=== PATIENT | female | born 1945 | race Native Hawaiian/Other Pacific Islander ===

== ENCOUNTER 2021-09-24 12:42 | Emergency (ER) | payer MEDICARE, SELFPAY ==
[2021-09-24 12:55] VITALS: BP 170/87; PULSE 95; RESP 24; TEMP 36.2; O2SAT 80; BMI 28.1
--- NOTE | 2021-09-24 13:00 | W.ED.SOB ---
HPI - SOB/Dyspnea General: Chief Complaint: Shortness of Breath/Dyspnea Stated Complaint: Low O2, Difficulty Breathing Time Seen by Provider: 09/24/21 12:55 History of Present Illness: HPI Narrative: Ms. Llanos is a 75-year-old lady with significant past medical history of COPD who presents to the emergency department due to shortness of breath and cough. Symptoms have been worse for the past 3 days. She has productive cough, generalized malaise, but no other generalized symptoms. intensisty is moderate to severe. Denies covid vaccination or known sick exposure. She does endorse bilateral lower extremity edema and was started on Lasix recently, does have a history of left greater than right swelling however symmetric lately. No other specific changes to health, exacerbating, or alleviating factors identified. Review of Systems General: Reports: 10 or more systems reviewed and unremarkable except in HPI and below [facility] ED PFSH: Medical History (Updated 09/29/21 @ 00:01 by ) Acute and chronic respiratory failure with hypercapnia Acute exacerbation of chronic obstructive airways disease Respiratory failure with hypoxia and hypercapnia Physical Exam Narrative: EXAM NARRATIVE: GENERAL/CONSTITUTIONAL -mildly ill-appearing. Respiratory as noted below Eyes - PERRL, no conjunctival injection ENMT - Atraumatic external nose and ears. Moist mucous membranes NECK - supple. trachea midline CARDIOVASCULAR - regular rate and rhythm. 1-2+ edema bilateral lower extremities RESPIRATORY -coarse to auscultation bilaterally and diminished. Tachypnea with mild accessory muscle use, now requiring supplemental oxygen. ABDOMEN/GI - Nontender/Nondistended. MSK - Extremities without obvious deformity or tenderness to palpation SKIN - Warm, Dry NEURO - alert and appropriately oriented. Moves all extremities equally. Course ED course: - Patient was seen and evaluated by me at bedside - Patient placed on cardiac monitors, IV access obtained - Initial evaluation notable for respiratory status as noted above, no evidence of fatigue or need for further escalation at this time -RT treatment ordered. - Labs notable for no leukocytosis, hemoconcentration compared to normal. ABG compensated with mildly increased PCO2 and decreased PO2. No significant electrolyte abnormalities. BNP only minimally elevated. Procalcitonin negative. Viral studies negative - Imaging notable for no acute finding on chest x-ray, clinical presentation is more impressive than chest x-ray findings and therefore additional CT imaging felt to be warranted. No pulmonary embolism identified or other significant infiltrate. Hilar adenopathy discussed with patient. - Upon serial reexamination after treatment the patient was improved with treatment though still requiring oxygen. - Based on patient history, evaluation, labs, and imaging as interpreted the most likely cause of the patient's condition is COPD exacerbation - The results of ED evaluation were discussed with the patient including potential management options. I offered admission versus DC with home oxygen and COPD exacerbation treatment. Patient desired discharge home, all oxygen ordered. Prescriptions, return precautions, follow-up plan discussed with the patient. She verbalized understanding and feels safe for discharge. - Patient discharged in satisfactory condition. Vital Signs: Vital signs: Vital Signs Temperature 97.2 F L 09/24/21 12:55 Pulse Rate 95 09/24/21 13:38 Respiratory Rate 22 H 09/24/21 13:38 Blood Pressure 131/105 09/24/21 13:29 Pulse Oximetry 88 L 09/24/21 17:27 MDM - SOB/Dyspnea Medical Records: Attestation: I reviewed the patient's medical records. Lab Data: Attestation: I reviewed the patient's lab results. Labs: Lab Results 09/24/21 09/24/21 09/24/21 13:07 13:07 13:07 WBC 6.5 10^3/uL 10^3/ uL (4.0-10.0) RBC 5.35 10^6/uL H 10 ^6/uL (4.1-5.3) Hgb 15.9 g/dL H g/dL (11.5-15.3) Hct 47.9 % H % (37.0-47.0) MCV 89.5 fl fl (81-99) MCH 29.7 pg pg (28.0-34.0) MCHC 33.2 g/dL g/dL (30.0-36.0) RDW 15.1 % % (12.1-15.1) Plt Count 262 10^3/cmm 10^3 /cmm (130-400) MPV 10.5 fL H fL (7.4-10.4) Neut % (Auto) 70.2 % % Lymph % (Auto) 15.6 % % [place] % (Auto) 9.0 % % Eos % (Auto) 4.0 % % Baso % (Auto) 0.9 % % Neut # (Auto) 4.54 10^3/uL 10^3 /uL (1.8-7.7) Lymph # (Auto) 1.0 10^3/uL 10^3/ uL (0.8-4.8) [place] # (Auto) 0.6 10^3/uL 10^3/ uL (0.2-0.9) Eos # (Auto) 0.3 10^3/uL 10^3/ uL (0.0-0.8) Baso # (Auto) 0.1 10^3/uL 10^3/ uL (0.0-0.1) Nucleated RBC % (a uto) 0 % % Nucleated RBCs # 0.0 /100WBC /100W BC Specimen Type Sample Site ABG pH ABG pCO2 ABG pO2 ABG HCO3 ABG Base Excess Dhruv Test Hematocrit Hgb O2 Saturation Carboxyhemoglobin Methemoglobin Total Hemoglobin O2 Delivery Device O2 Liters/Min FiO2 Loan Documentation Specialist ID Sodium 137 mmol/L mmol/L (136-145) Potassium 4.5 mmol/L mmol/L (3.5-5.1) Chloride 99 mmol/L mmol/L (98-107) Carbon Dioxide 25 mmol/L mmol/L (22-29) Anion Gap 17.5 (5-19) BUN 7 mg/dL L mg/dL (8-23) Creatinine 0.5 mg/dL mg/dL (0.5-0.9) GFR Calculation Not Reportable Glucose 88 mg/dL mg/dL (65-115) Calculated Osmolal ity 281 mOsm/kg L mOs m/kg (285-295) Lactic Acid 1.0 mmol/L mmol/L (0.5-2.2) Calcium 9.3 mg/dL mg/dL (8.5-10.5) Total Bilirubin 0.4 mg/dL mg/dL (0.15-1.2) AST 17 U/L U/L (0-32) ALT 17 U/L U/L (0-33) Alkaline Phosphata se 99 IU/L IU/L (35-105) Troponin T Baselin e C-Reactive Protein 8.1 mg/L H mg/L (0.0-4.9) NT-Pro-B Natriuret Pep 352 pg/mL H pg/mL (0-125) Total Protein 7.1 g/dL g/dL (6.6-8.7) Albumin 4.7 g/dL g/dL (3.5-5.2) Globulin 2.4 g/dL g/dL (1.3-4.6) Procalcitonin 0.07 ng/mL ng/mL (0-0.5) Influenza Type A A g Influenza Type B A g SARS-CoV-2 Ag (Rap id) 09/24/21 09/24/21 09/24/21 13:07 13:19 13:19 WBC RBC Hgb Hct MCV MCH MCHC RDW Plt Count MPV Neut % (Auto) Lymph % (Auto) [place] % (Auto) Eos % (Auto) Baso % (Auto) Neut # (Auto) Lymph # (Auto) [place] # (Auto) Eos # (Auto) Baso # (Auto) Nucleated RBC % (a uto) Nucleated RBCs # Specimen Type Sample Site ABG pH ABG pCO2 ABG pO2 ABG HCO3 ABG Base Excess Dhruv Test Hematocrit Hgb O2 Saturation Carboxyhemoglobin Methemoglobin Total Hemoglobin O2 Delivery Device O2 Liters/Min FiO2 Loan Documentation Specialist ID Sodium Potassium Chloride Carbon Dioxide Anion Gap BUN Creatinine GFR Calculation Glucose Calculated Osmolal ity Lactic Acid Calcium Total Bilirubin AST ALT Alkaline Phosphata se Troponin T Baselin e 10 ng/L ng/L (0-10) C-Reactive Protein NT-Pro-B Natriuret Pep Total Protein Albumin Globulin Procalcitonin Influenza Type A A g Negative (Negative) Influenza Type B A g Negative (Negative) SARS-CoV-2 Ag (Rap id) Negative (Negative) 09/24/21 13:22 WBC RBC Hgb Hct MCV MCH MCHC RDW Plt Count MPV Neut % (Auto) Lymph % (Auto) [place] % (Auto) Eos % (Auto) Baso % (Auto) Neut # (Auto) Lymph # (Auto) [place] # (Auto) Eos # (Auto) Baso # (Auto) Nucleated RBC % (a uto) Nucleated RBCs # Specimen Type Arterial Sample Site Brachial, left ABG pH 7.40 (7.35-7.45) ABG pCO2 45.3 mmHg H mmHg (35-45) ABG pO2 63.5 mmHg L mmHg (80.0-100.0) ABG HCO3 28.3 mmol/L H mmo l/L (22-26) ABG Base Excess 2.9 mmol/L H mmol /L (-2.0-2.0) Dhruv Test N/a Hematocrit 45.2 % % (37-47) Hgb O2 Saturation 90.8 % L % (95-100) Carboxyhemoglobin 1.5 %THgb %THgb (0.4-20.1) Methemoglobin 0.7 % % (0.4-1.5) Total Hemoglobin 14.7 g/dL g/dL (12-16) O2 Delivery Device Nc O2 Liters/Min 1.0 % % FiO2 24.0 % % Loan Documentation Specialist ID Amh Sodium Potassium Chloride Carbon Dioxide Anion Gap BUN Creatinine GFR Calculation Glucose Calculated Osmolal ity Lactic Acid Calcium Total Bilirubin AST ALT Alkaline Phosphata se Troponin T Baselin e C-Reactive Protein NT-Pro-B Natriuret Pep Total Protein Albumin Globulin Procalcitonin Influenza Type A A g Influenza Type B A g SARS-CoV-2 Ag (Rap id) EKG Data^: EKG 1: Attestation: I personally reviewed and interpreted this EKG as follows: EKG Interpretation Date: 09/24/21 EKG interpretation time: 13:07 Interpretation: Twelve-lead EKG shows a regular rhythm at a rate of 98. NV interval 154, QRS duration 79, QTc 401. Normal axis. Interpretation: Sinus rhythm. EKG 2: Attestation: I personally reviewed and interpreted this EKG as follows: EKG Interpretation Date: 09/24/21 EKG interpretation time: 15:35 Interpretation: Twelve-lead EKG shows a regular rhythm at a rate of 79. NV interval 136, QRS duration 79, QTc 417. Normal axis. Interpretation: Sinus rhythm. Discharge Plan Discharge Patient Disposition: Home Clinical Impression: Acute exacerbation of chronic obstructive airways disease, Adenopathy, hilar Condition: Stable Prescriptions: New doxycycline hyclate 100 mg tablet 100 mg PO BID 10 Days Qty: 20 RF: 0 No Action potassium chloride 10 mEq tablet extended release 10 meq PO DAILY PRN (Reason: take with lasix) RF: 0 Tylenol 8 Hour 650 mg Tablet Extended Release 650 mg PO Q12H PRN (Reason: Pain) RF: 0 furosemide 20 mg tablet 20 mg PO DAILY PRN (Reason: Edema) RF: 0 albuterol sulfate 90 mcg/actuation HFA aerosol inhaler 2 inh inhalation Q4H PRN (Reason: Shortness Of Breath) RF: 0 prednisone 50 mg tablet 50 mg PO QAM 7 Days Qty: 7 RF: 0 Advair Diskus 100-50 mcg/dose blister with device 1 inh inhalation BID Qty: 60 RF: 3 Discharge Orders: Discharge ED (Routine); Ordered 09/24/21 Ordered By: Daniel Hamilton Other Ambulatory Orders: DME: Oxygen (Order) Location: None Selected Ordered By: Daniel Hamitlon Referrals: Leora Ordoñez MD [Primary Care Provider] - Discharge Diet: Usual diet Discharge Activity: Resume usual activity Patient Instructions: COPD (Chronic Obstructive Pulmonary Disease) (ED) Activity Restrictions/Additional Instructions: Thank you for visiting the emergency department. You were seen and evaluated for shortness of breath. The most likely cause of this is COPD exacerbation. You will be given prescriptions for management of this. I recommended albuterol inhaler use 2 puffs every 4 hours scheduled for the next 24 hours followed by 2 puffs every 6 hours scheduled for 24 hours followed by as needed. Incidentally you were noted to have a left thoracic hilar adenopathy measuring 2 cm. You should follow-up with your primary care physician regarding this finding however you likely need repeat CT scan or PET scan within the next 3 to 6 months to ensure this is not growing. Return to the emergency department for worsening symptoms, failure to improve, or anything else that you are concerned about and feel needs emergency department evaluation. Coding Level of Care Code ED Supervisor Film Processing for Jessica Hui
--- NOTE | 2021-09-24 13:07 | XRR_ITS ---
PROCEDURE INFORMATION: Exam: XR Chest Exam date and time: 09/24/2021 1:07 PM Age: 75 years old Clinical indication: Shortness of breath; Prior surgery; Surgery date: 6+ months; Surgery type: RT breast; Additional info: SOB TECHNIQUE: Imaging protocol: XR of the chest. Views: 1 view. COMPARISON: No relevant prior studies available. FINDINGS: Lungs: Unremarkable. No consolidation. There is a calcified granuloma in the mid right lung. Pleural spaces: Unremarkable. No pleural effusion. No pneumothorax. Heart/Mediastinum: Unremarkable. No cardiomegaly. Bones/joints: Unremarkable. XR/XR chest 1V portable [id number] IMPRESSION: No acute findings. Radiation Dose CTDIVOL = (mGy): DLP = (mGy-cm)
--- NOTE | 2021-09-24 13:08 | ECG_ITS ---
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 Measurements Intervals [place] Rate: 98 P: 77 NM: 154 QRS: 90 QRSD: 79 T: 66 QT: 346 QTc: 443 Interpretive Statements SINUS RHYTHM POSSIBLE RIGHT ATRIAL ENLARGEMENT [0.25mV P-WAVE] POSSIBLE LEFT ATRIAL ENLARGEMENT [-0.1mV P-WAVE IN V1/V2] POSSIBLE RIGHT VENTRICULAR CONDUCTION DELAY [RSR (QR) IN V1/V2] ANTEROSEPTAL MYOCARDIAL INFARCTION , OF INDETERMINATE AGE [40+ ms Q WAVE IN V1-V4] No previous ECG available for comparison Electronically Signed On 09-24-2021 22:05:58 LOT TECHNICIAN by Helene Ya M.D. [id number] f
[2021-09-24] MEDS: ipratropium-albuterol 3 mL Neb INHALATION (13:18)
[2021-09-24 13:26] LABS: Basophils # 0.1 10^3/uL (0.0-0.1); Basophils % 0.9 %; Eosinophils # 0.3 10^3/uL (0.0-0.8); Hematocrit 47.9 % (37.0-47.0); Hemoglobin 15.9 g/dL (11.5-15.3); Lymphocytes % 15.6 %; Mean Corpuscular HGB Conc 33.2 g/dL (30.0-36.0); Mean Corpuscular Hemoglobin 29.7 pg (28.0-34.0); Mean Corpuscular Volume 89.5 fl (81-99); Mean Platelet Volume 10.5 fL (7.4-10.4); Monocytes # 0.6 10^3/uL (0.2-0.9); Neutrophils # 4.54 10^3/uL (1.8-7.7); Neutrophils % 70.2 %; Nucleated Red Blood Cells % 0 %; Platelet Count 262 10^3/cmm (130-400); Red Blood Count 5.35 10^6/uL (4.1-5.3); Red Cell Distribution Width 15.1 % (12.1-15.1); White Blood Count 6.5 10^3/uL (4.0-10.0)
[2021-09-24 13:29] VITALS: BP 131/105; PULSE 84; RESP 22; O2SAT 93
[2021-09-24 13:30] VITALS: PULSE 84; RESP 22; O2SAT 91
[2021-09-24 13:33] LABS: ABG PCO2 45.3 mmHg (35-45); Arterial Blood Gas Hematocrit 45.2 % (37-47); Base Excess ABG 2.9 mmol/L (-2.0-2.0); Blood Gas Operator Identificat AMH; Blood Gas Sample Site Brachial, left; Blood Gas Sample Type Arterial; Carboxyhemoglobin 1.5 %THgb (0.4-20.1); HCO3 ABG 28.3 mmol/L (22-26); HGB O2 Sat 90.8 % (95-100); Methemoglobin 0.7 % (0.4-1.5); Oxygen Device NC; PO2 ABG 63.5 mmHg (80.0-100.0); Total Hemoglobin 14.7 g/dL (12-16)
--- NOTE | 2021-09-24 13:35 | PC.NURSE ---
Continuos monitoring of Cardiac, BP, and SpO2 initiated upon arrival.
[2021-09-24 13:38] VITALS: PULSE 95; RESP 22; O2SAT 95
[2021-09-24 13:58] LABS: Influenza A by IFA Negative (Negative); Influenza B by IFA Negative (Negative); SARS Covid-2 Antigen Negative (Negative)
[2021-09-24 13:58] LABS: Procalcitonin 0.07 ng/mL (0-0.5)
[2021-09-24 14:09] LABS: Alanine Aminotransferase 17 U/L (0-33); Albumin Level 4.7 g/dL (3.5-5.2); Alkaline Phosphatase 99 IU/L (35-105); Anion Gap 17.5 (5-19); Aspartate Amino Transferase 17 U/L (0-32); Blood Urea Nitrogen 7 mg/dL (8-23); C Reactive Protein 8.1 mg/L (0.0-4.9); Calcium 9.3 mg/dL (8.5-10.5); Carbon Dioxide 25 mmol/L (22-29); Chloride 99 mmol/L (98-107); Globulin 2.4 g/dL (1.3-4.6); Glucose 88 mg/dL (65-115); Osmolality Calculated 281 mOsm/kg (285-295); Potassium 4.5 mmol/L (3.5-5.1); Sodium 137 mmol/L (136-145); Total Bilirubin 0.4 mg/dL (0.15-1.2); Total Protein 7.1 g/dL (6.6-8.7)
--- NOTE | 2021-09-24 14:29 | CTR_ITS ---
PROCEDURE INFORMATION: Exam: CTA Chest With Contrast Exam date and time: 09/24/2021 2:29 PM Age: 75 years old Clinical indication: Other: Hypoxemia, asymetric leg swelling HX TECHNIQUE: Imaging protocol: Computed tomographic angiography of the chest with contrast. 3D rendering (Not supervised by radiologist): MIP and/or 3D reconstructed images were created by the technologist. Radiation optimization: All CT scans at this facility use at least one of these dose optimization techniques: automated exposure control; mA and/or kV adjustment per patient size (includes targeted exams where dose is matched to clinical indication); or iterative reconstruction. Contrast material: OMNI 350; Contrast volume: 63 ml; Contrast route: INTRAVENOUS (IV); COMPARISON: CR XR chest 1V portable [id number] 09/24/2021 1:42 PM RADIATION DOSE METRICS: Total DLP (mGy-cm): 529.01 FINDINGS: Pulmonary arteries: Normal. No pulmonary emboli. Aorta: Unremarkable. No aortic aneurysm. No aortic dissection. Lungs: There is a calcified granuloma in the anterior right upper lobe. There is probable atelectasis/scar in the lungs. No lung mass or significant consolidation. Pleural spaces: Unremarkable. No pneumothorax. No pleural effusion. Heart: Unremarkable. No cardiomegaly. No pericardial effusion. Lymph nodes: There is left thoracic hilar adenopathy measuring 2 cm as seen on series 2, image 180. No associated calcification. No mediastinal adenopathy. Bones/joints: Degenerative change is identified in the spine. There is no evidence for acute fracture or malalignment. Soft tissues: Unremarkable. CT/CT angio chest PE protcl [id number] IMPRESSION: There is no evidence for a pulmonary artery embolus. Findings are suggestive of left thoracic hilar adenopathy.Followup as clinically indicated. Radiation Dose CTDIVOL = (mGy): DLP = 529.01 (mGy-cm)
[2021-09-24 14:49] LABS: NT Pro B Type Natriuretic Pept 352 pg/mL (0-125)
--- NOTE | 2021-09-24 15:08 | ECG_ITS ---
[facility] Test Date: 2021-09-24 Pat Name: Halley Llanos Department: Room: Gender: Female Technical Account Manager: : 1945 Requested By: Daniel Hamilton Order Number: [id number] Agustin MD: Helene Ya M.D. Measurements Intervals [place] Rate: 79 P: 75 CO: 136 QRS: 88 QRSD: 79 T: 63 QT: 383 QTc: 440 Interpretive Statements SINUS RHYTHM POSSIBLE LEFT ATRIAL ENLARGEMENT [-0.1mV P-WAVE IN V1/V2] POSSIBLE RIGHT VENTRICULAR CONDUCTION DELAY [RSR (QR) IN V1/V2] ANTEROSEPTAL MYOCARDIAL INFARCTION , OF INDETERMINATE AGE [40+ ms Q WAVE IN V1-V4] Compared to ECG 09/24/2021 13:03:32 No significant changes Electronically Signed On 09-24-2021 22:18:21 SHAFT HEADMAN by Helene Ya M.D. [id number] f
[2021-09-24] MEDS: iohexol 350 mg/mL 100 mL Btl IV (16:03)
[2021-09-24 16:11] LABS: Troponin(5th) Baseline 10 ng/L (0-10)
[2021-09-24] MEDS: sodium chloride 0.9% 500 ML 999 ML IV (16:30)
[2021-09-24] MEDS: doxycycline 100 mg Tablet PO (17:16)
[2021-09-24] MEDS: acetaminophen 500 mg Tablet 1000 MG PO (17:16)
[2021-09-24] MEDS: ketorolac 30 mg/mL INJ 15 MG IVP (17:17)
[2021-09-24 17:27] VITALS: O2SAT 88
== END 2021-09-24 20:24 | disposition home or self-care (01) ==
PROVIDERS: Emergency Provider Emergency Medicine; PCP Family Medicine
DX: J44.1 Chronic obstructive pulmonary disease with (acute) exacerbation (principal); R59.9 Enlarged lymph nodes, unspecified; Z20.822 Contact with and (suspected) exposure to COVID-19
CPT/HCPCS: 36600; 71045; 71275; 80053; 82805; 83605; 83880; 84145; 84484; 85025; 86140; 87040; 87426; 87804; 93005; 94640; 96374; 96375; 99284; J1885; J2930; J7040; Q9967

== ENCOUNTER 2021-09-26 10:05 | Observation (INO) | payer MEDICARE, SELFPAY ==
[2021-09-26] VITALS (11 sets, daily range): BP systolic 133–186; BP diastolic 65–83; PULSE 60–108; RESP 16–22; TEMP 36.4–37; O2SAT 94–98; BMI 28.1
--- NOTE | 2021-09-26 10:10 | XRR_ITS ---
PROCEDURE INFORMATION: Exam: XR Chest Exam date and time: 09/26/2021 10:10 AM Age: 75 years old Clinical indication: Cough and shortness of breath; Prior surgery; Surgery type: Lump removal breast; Patient HX: SOB, cough, cp, and lung pain since Sunday. HX of breast cancer; Additional info: Cough, SOB, low o2 TECHNIQUE: Imaging protocol: XR of the chest. Views: 2 views. COMPARISON: CR XR chest 1V portable [id number] 09/24/2021 1:42 PM FINDINGS: Lungs: Mildly increased lung markings, which can be seen in setting of pulmonary congestion. A tiny calcified granuloma is again seen in the right mid lung. No consolidation. Pleural spaces: Unremarkable. No pleural effusion. No pneumothorax. Heart/Mediastinum: Stable cardiomediastinal silhouette. Bones/joints: Degenerative changes of the spine seen. XR/XR chest 2V* [id number] IMPRESSION: Possible mild pulmonary congestion. Radiation Dose CTDIVOL = (mGy): DLP = (mGy-cm)
--- NOTE | 2021-09-26 11:15 | ECG_ITS ---
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 Measurements Intervals [place] Rate: 62 P: 71 LA: 140 QRS: 81 QRSD: 86 T: 100 QT: 402 QTc: 409 Interpretive Statements SINUS RHYTHM POSSIBLE LEFT ATRIAL ENLARGEMENT [-0.1mV P-WAVE IN V1/V2] SEPTAL MYOCARDIAL INFARCTION , OF INDETERMINATE AGE [40+ ms Q WAVE IN V1/V2] Compared to ECG 09/24/2021 15:31:30 No significant changes Electronically Signed On 09-26-2021 20:02:12 ENVIRONMENTAL PROTECTION SPECIALIST by Helene Ya M.D. [id number]
[2021-09-26 11:53] LABS: Basophils % 0.2 %; Eosinophils % 0.2 %; Hematocrit 46.3 % (37.0-47.0); Hemoglobin 14.9 g/dL (11.5-15.3); Lymphocytes # 0.8 10^3/uL (0.8-4.8); Lymphocytes % 8.4 %; Mean Corpuscular HGB Conc 32.2 g/dL (30.0-36.0); Mean Corpuscular Hemoglobin 29.1 pg (28.0-34.0); Mean Corpuscular Volume 90.4 fl (81-99); Mean Platelet Volume 10.2 fL (7.4-10.4); Monocytes # 0.3 10^3/uL (0.2-0.9); Monocytes % 3.3 %; Neutrophils % 87.5 %; Nucleated Red Blood Cells % 0 %; Platelet Count 264 10^3/cmm (130-400); Red Blood Count 5.12 10^6/uL (4.1-5.3); Red Cell Distribution Width 15.1 % (12.1-15.1); White Blood Count 9.8 10^3/uL (4.0-10.0)
[2021-09-26] MEDS: ipratropium-albuterol 3 mL Neb INHALATION ×3 (12:20→23:14)
--- NOTE | 2021-09-26 12:28 | W.ED.SOB ---
HPI - SOB/Dyspnea General: Chief Complaint: Shortness of Breath/Dyspnea Stated Complaint: Cough, SOB, low O2, pain Time Seen by Provider: 09/26/21 12:12 History of Present Illness: HPI Narrative: 75-year-old female presents emergency room with complaints of shortness of breath and cough. Patient was seen 2 days ago started on steroids and doxycycline and she feels like she is gotten worse requiring 3 L by nasal cannula. She is normally on oxygen at home. She does report increasing productive cough as well as some mild chest discomfort. She has not been using albuterol at home because she does not like the side effects that she gets when she uses it. MD elicited complaint: shortness of breath and cough Pertinent past history: COPD Onset (ago): day(s) Timing: constant Severity: moderate Exacerbating factors: exertion and coughing Relieving factors: oxygen, rest and bronchodilators Known history of: COPD Associated symptoms: Reports chest congestion, chest pain and cough; Deny abdominal pain, diaphoresis, dizziness, extremity pain, fever(s), hemoptysis, lightheadedness, myalgias, nausea, orthopnea, palpitations, paresthesias, polydipsia, polyuria, rash, sense of impending doom, syncope or vomiting Treatment prior to arrival: oxygen and bronchodilator Review of Systems Const: Denies: fever(s) or diaphoresis ENMT: Denies: throat pain, ear or mastoid pain, nasal discharge or nasal congestion Card: Reports: chest pain; Denies: palpitations, lightheadedness, syncope or orthopnea Resp: Reports: chest congestion; Denies: hemoptysis GI: Denies: abdominal pain, nausea or vomiting : Denies: flank pain, difficulty voiding, dysuria, urinary frequency or urinary urgency Musc: Denies: extremity pain Skin/Breast: Denies: rash or pruritus Neuro: Denies: dizziness Endo: Denies: polyuria or polydipsia Physical Exam Const: GENERAL APPEARANCE: cooperative and comfortable ORIENTATION/CONSCIOUSNESS: Yes awake, Yes oriented to person, Yes oriented to place and Yes oriented to time OTHER: Mild respiratory distress on arrival HENMT: COMMON NORMALS: normocephalic, atraumatic and hearing grossly normal bilaterally HEAD & SCALP: normocephalic and atraumatic Neck/C-Spine: COMMON NORMALS: no JVD Resp: AUSCULTATION: wheezes, diminished lung sounds and bronchovesicular breath sounds Cardio: COMMON NORMALS: no JVD, regular rate, regular rhythm and No murmurs present (Cardio) RATE: regular rate RHYTHM: regular rhythm GI: COMMON NORMALS: Soft to palpation and No hepatosplenomegaly present AUSCULTATION: Yes normoactive bowel sounds PALPATION: Yes Soft to palpation, No Tenderness to palpation present (GI), No Guarding due to palpation present (GI) and Yes No hepatosplenomegaly present Extremity: COMMON NORMALS: normal to inspection, capillary refill normal, no clubbing, cyanosis or edema, no calf tenderness and no pedal edema Neuro: SENSORIUM/ORIENTATION: Yes oriented to person, Yes oriented to place and Yes oriented to time Skin: COMMON NORMALS: no rashes or lesions noted GENERAL SKIN EXAM: no rashes or lesions noted Course Vital Signs: Vital signs: Vital Signs Temperature 98.6 F 09/26/21 10:37 Pulse Rate 90 09/26/21 16:11 Respiratory Rate 20 H 09/26/21 16:11 Blood Pressure 152/77 09/26/21 16:11 Pulse Oximetry 94 09/26/21 16:11 MDM - SOB/Dyspnea MDM Narrative: Medical decision making narrative: Patient failing outpatient therapy up until 2 days ago patient was not on antibiotics. She was discharged home 2 days ago with steroids antibiotics and oxygen she has had escalating oxygen needs and she is now requiring 3 L before she needed to and with him any kind of activity she desats again. Discussed with Dr. Pete will place on observation for exacerbation COPD failure of outpatient therapy. Lab Data: Labs: Lab Results 09/26/21 09/26/21 09/26/21 11:35 11:35 11:35 WBC 9.8 10^3/uL 10^3/ uL (4.0-10.0) RBC 5.12 10^6/uL 10^6 /uL (4.1-5.3) Hgb 14.9 g/dL g/dL (11.5-15.3) Hct 46.3 % % (37.0-47.0) MCV 90.4 fl fl (81-99) MCH 29.1 pg pg (28.0-34.0) MCHC 32.2 g/dL g/dL (30.0-36.0) RDW 15.1 % % (12.1-15.1) Plt Count 264 10^3/cmm 10^3 /cmm (130-400) MPV 10.2 fL fL (7.4-10.4) Neut % (Auto) 87.5 % % Lymph % (Auto) 8.4 % % [place] % (Auto) 3.3 % % Eos % (Auto) 0.2 % % Baso % (Auto) 0.2 % % Neut # (Auto) 8.60 10^3/uL H 10 ^3/uL (1.8-7.7) Lymph # (Auto) 0.8 10^3/uL 10^3/ uL (0.8-4.8) [place] # (Auto) 0.3 10^3/uL 10^3/ uL (0.2-0.9) Eos # (Auto) 0.0 10^3/uL 10^3/ uL (0.0-0.8) Baso # (Auto) 0.0 10^3/uL 10^3/ uL (0.0-0.1) Nucleated RBC % (a uto) 0 % % Nucleated RBCs # 0.0 /100WBC /100W BC Specimen Type Sample Site ABG pH ABG pCO2 ABG pO2 ABG HCO3 ABG O2 Saturation ABG Base Excess Dhruv Test A-a O2 Gradient Hematocrit Hgb O2 Saturation Carboxyhemoglobin Methemoglobin Total Hemoglobin Ionized Calcium O2 Delivery Device O2 Liters/Min FiO2 Reading Recovery Teacher ID Sodium 137 mmol/L mmol/L (136-145) Potassium 4.3 mmol/L mmol/L (3.5-5.1) Chloride 98 mmol/L mmol/L (98-107) Carbon Dioxide 28 mmol/L mmol/L (22-29) Anion Gap 15.3 (5-19) BUN 15 mg/dL mg/dL (8-23) Creatinine 0.5 mg/dL mg/dL (0.5-0.9) GFR Calculation Not Reportable Glucose 84 mg/dL mg/dL (65-115) Calculated Osmolal ity 284 mOsm/kg L mOs m/kg (285-295) Calcium 9.1 mg/dL mg/dL (8.5-10.5) Total Bilirubin 0.4 mg/dL mg/dL (0.15-1.2) AST 19 U/L U/L (0-32) ALT 16 U/L U/L (0-33) Alkaline Phosphata se 83 IU/L IU/L (35-105) Troponin T Baselin e 9 ng/L ng/L (0-10) Troponin T 120 Min [place] Troponin T NT-Pro-B Natriuret Pep 508 pg/mL H pg/mL (0-125) Total Protein 7.2 g/dL g/dL (6.6-8.7) Albumin 4.5 g/dL g/dL (3.5-5.2) Globulin 2.7 g/dL g/dL (1.3-4.6) 09/26/21 09/26/21 12:28 13:29 WBC RBC Hgb Hct MCV MCH MCHC RDW Plt Count MPV Neut % (Auto) Lymph % (Auto) [place] % (Auto) Eos % (Auto) Baso % (Auto) Neut # (Auto) Lymph # (Auto) [place] # (Auto) Eos # (Auto) Baso # (Auto) Nucleated RBC % (a uto) Nucleated RBCs # Specimen Type Arterial Sample Site Radial, left ABG pH 7.36 (7.35-7.45) ABG pCO2 52.3 mmHg H mmHg (35-45) ABG pO2 78.4 mmHg L mmHg (80.0-100.0) ABG HCO3 29.8 mmol/L H mmo l/L (22-26) ABG O2 Saturation 96.3 ABG Base Excess 3.2 mmol/L H mmol /L (-2.0-2.0) Dhruv Test Pos A-a O2 Gradient 11.4 mmHg H mmHg (5-10) Hematocrit 44.0 % % (37-47) Hgb O2 Saturation 94.7 % L % (95-100) Carboxyhemoglobin 0.9 %THgb %THgb (0.4-20.1) Methemoglobin 0.8 % % (0.4-1.5) Total Hemoglobin 14.4 g/dL g/dL (12-16) Ionized Calcium 1.2 mmol/L mmol/L (1.1-1.4) O2 Delivery Device Nc O2 Liters/Min 3.0 % % FiO2 32.0 % % Reading Recovery Teacher ID Ed Sodium 139.0 mmol/L mmol /L (131-143) Potassium 4.3 mmol/L mmol/L (3.5-5.0) Chloride Carbon Dioxide Anion Gap BUN Creatinine GFR Calculation Glucose 99.0 mg/dL mg/dL (70-115) Calculated Osmolal ity Calcium Total Bilirubin AST ALT Alkaline Phosphata se Troponin T Baselin e Troponin T 120 Min [place] 9.03 ng/L ng/L (0-10) Delta Troponin T 0.03 ABS# ABS# (0-10) NT-Pro-B Natriuret Pep Total Protein Albumin Globulin Discharge Plan Discharge Patient Disposition: Placed in Observation Admit Provider: Gabriel Pete Clinical Impression: Acute exacerbation of chronic obstructive airways disease, Acute and chronic respiratory failure with hypercapnia Coding Level of Care Code ED Speedboat Driver for Chg Fwd Exam Comprehensive
[2021-09-26] MEDS: terbutaline 1 mg/mL INJ 0.25 MG SUBCUT (12:33)
[2021-09-26 12:40] LABS: ABG PCO2 52.3 mmHg (35-45); ABG PH Result 7.36 (7.35-7.45); Alveolar-Arterial Oxygen Gradi 11.4 mmHg (5-10); Base Excess ABG 3.2 mmol/L (-2.0-2.0); Blood Gas Allen Test Pos; Blood Gas Operator Identificat ED; Blood Gas Sample Site Radial, left; Blood Gas Sample Type Arterial; Carboxyhemoglobin 0.9 %THgb (0.4-20.1); HCO3 ABG 29.8 mmol/L (22-26); HGB O2 Sat 94.7 % (95-100); Ionized Calcium Level - ABG 1.2 mmol/L (1.1-1.4); Methemoglobin 0.8 % (0.4-1.5); Oxygen Device NC; Oxygen Saturation ABG 96.3; PO2 ABG 78.4 mmHg (80.0-100.0); Potassium Level - ABG 4.3 mmol/L (3.5-5.0); Total Hemoglobin 14.4 g/dL (12-16)
[2021-09-26 12:45] LABS: Troponin(5th) Baseline 9 ng/L (0-10)
[2021-09-26 12:48] LABS: Alanine Aminotransferase 16 U/L (0-33); Albumin Level 4.5 g/dL (3.5-5.2); Alkaline Phosphatase 83 IU/L (35-105); Anion Gap 15.3 (5-19); Aspartate Amino Transferase 19 U/L (0-32); Blood Urea Nitrogen 15 mg/dL (8-23); Calcium 9.1 mg/dL (8.5-10.5); Carbon Dioxide 28 mmol/L (22-29); Chloride 98 mmol/L (98-107); Globulin 2.7 g/dL (1.3-4.6); Glucose 84 mg/dL (65-115); Osmolality Calculated 284 mOsm/kg (285-295); Potassium 4.3 mmol/L (3.5-5.1); Sodium 137 mmol/L (136-145); Total Bilirubin 0.4 mg/dL (0.15-1.2); Total Protein 7.2 g/dL (6.6-8.7)
[2021-09-26 12:54] LABS: NT Pro B Type Natriuretic Pept 508 pg/mL (0-125)
--- NOTE | 2021-09-26 13:32 | ECG_ITS ---
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 Measurements Intervals Spencer Rate: 94 P: 76 MS: 153 QRS: 80 QRSD: 86 T: 71 QT: 351 QTc: 441 Interpretive Statements SINUS RHYTHM POSSIBLE RIGHT ATRIAL ENLARGEMENT [0.25mV P-WAVE] POSSIBLE LEFT ATRIAL ENLARGEMENT [-0.1mV P-WAVE IN V1/V2] SEPTAL MYOCARDIAL INFARCTION , OF INDETERMINATE AGE [40+ ms Q WAVE IN V1/V2] Compared to ECG 09/26/2021 11:21:35 No significant changes Electronically Signed On 09-26-2021 20:10:57 SAMPLE COORDINATOR by Helene Ya M.D. [id number]
[2021-09-26 14:22] LABS: Troponin 5 2HR 9.03 ng/L (0-10); Troponin 5 2HR Delta 0.03 ABS# (0-10)
--- NOTE | 2021-09-26 15:05 | PC.NURSE ---
Pt updated on plan of care, warm blanket and ice water provided, pt sts she is breathing easier since the Terbutiline and has been able to lay down and sleep some.
[2021-09-26] MEDS: sodium chloride 0.9% 1,000 ML 100 ML IV (17:48)
--- NOTE | 2021-09-26 18:28 | PM.HP ---
Providers/Chief Complaint Admitting Physician: Gabriel Pete MD Primary Care Provider: Leora Ordoñez MD Chief Complaint: Cough, SOB, low O2, pain History of Present Illness Halley Llanos is a 75 year old female with past medical history of COPD, not on home oxygen came in with chief complaint of worsening shortness of breath as well as cough started around Sunday,She initially came to the ER on 09/24 , and was discharged on prednisone as well as doxycycline, for COPD exacerbation, she failed to respond to outpatient treatment, came into the hospital because of worsening symptoms.Currently she is also complaining of inability to lie flat, as well as substernal chest tightness. Denies any fever, nausea vomiting, palpitations. Recently she has also started experiencing bilateral lower extremity swelling, for which she was started on as needed Lasix as an outpatient, by her primary care physician. Upon arrival in the ER she was worked up for above-mentioned complaint: Pertinent imaging studies: Mild bilateral pulmonary congestion EKG: Sinus rhythm, no acute ST-T wave change Pertinent labs: WBC 9.8, H&H:14.9/46,plt:264, serum sodium 137 serum potassium 4.3 BUN/ serum creatinine:15/0.5, proBNP: 508 ABG: pH: 7.36 PCO2 52, PO2:78, FiO2:32% Review of Systems Const: Denies: fever(s), chills, body aches, change in appetite or diaphoresis Card: Denies: palpitations, edema or leg pain with exertion GI: Denies: abdominal pain, nausea, vomiting, diarrhea or constipation : Denies: flank pain Musc: Denies: back pain or extremity pain Neuro: Denies: headache(s), difficulty walking or confusion Medications/Allergies Home Medications Medication Instructions Recorded Confirmed Last Taken Type doxycycline hyclate 100 mg PO BID 10 Days #20 tab 09/24/21 09/26/21 09/26/21 08:00 Rx acetaminophen [Tylenol 8 Hour] 650 mg PO Q12H PRN 09/26/21 09/26/21 09/25/21 23:00 History albuterol sulfate 2 inh INHALATION Q4H PRN 09/26/21 09/26/21 Unknown History furosemide 20 mg PO DAILY PRN 09/26/21 09/26/21 09/23/21 History potassium chloride 10 meq PO DAILY PRN 09/26/21 09/26/21 09/23/21 History prednisone 50 mg PO QAM 09/26/21 09/26/21 09/26/21 08:00 History Allergies Allergy/AdvReac Type Severity Reaction Status Date / Time Penicillins Allergy ALGY-Anaphy Verified 09/26/21 11:49 laxis Vitals/I&O/Wt Last Vital Signs Temp 98.4 F 09/26/21 17:29 Pulse 82 09/26/21 17:29 Resp 18 09/26/21 17:29 BP 133/65 09/26/21 17:29 Pulse Ox 94 09/26/21 17:29 Weight last 48 hrs Weight 67.585 kg Physical Exam Const: COMMON NORMALS: patient oriented x3 HENMT: COMMON NORMALS: normocephalic and atraumatic HEAD & SCALP: normocephalic and atraumatic Resp: EFFORT & INSPECTION: Yes abnormal respiratory pattern, Yes labored, Yes Actively coughing, Yes uses accessory muscles, Yes audible wheezes and Yes prolonged expiratory phase AUSCULTATION: clear to auscultation bilaterally and wheezes Cardio: COMMON NORMALS: regular rate, regular rhythm, S1 normal heart sound present, S2 normal heart sound present, No gallops present (Cardio), No murmurs present (Cardio), No rub (Cardio) and Peripheral pulses 2+ throughout RATE: regular rate RHYTHM: regular rhythm HEART SOUNDS: S1 normal heart sound present and S2 normal heart sound present PERIPHERAL PULSES: Peripheral pulses 2+ throughout GI: COMMON NORMALS: Normal to inspection, nondistended, normoactive bowel sounds present, Soft to palpation, non-tender, No hepatosplenomegaly present and no masses AUSCULTATION: Yes normoactive bowel sounds PALPATION: Yes Soft to palpation and Yes No hepatosplenomegaly present RECTAL EXAM: deferred Extremity: COMMON NORMALS: no clubbing, cyanosis or edema and no pedal edema Neuro: COMMON NORMALS: patient oriented x3 Data : 09/26/21 11:35 09/26/21 11:35 A&P Assessment and plan (1) Respiratory failure with hypoxia and hypercapnia: Respiratory failure with hypoxia and hypercapnia secondary to COPD exacerbation 2D echo: Monitor x-ray chest Monitor ABG Duo nebs, steroids, IV azithromycin, supplemental oxygen as needed. Lasix 20 mg p.o. daily Monitor intake output Status: Acute (2) Acute exacerbation of chronic obstructive airways disease: Status: Acute Attestations Medical Necessity Statement*: Patient needs to be in hospital for management of COPD exacerbation. 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
[2021-09-26] MEDS: enoxaparin 40 mg/0.4 mL Syringe SUBCUT (18:43)
[2021-09-26] MEDS: azithromycin 500 MG in sodium chloride 0.9% 250 ML 250 MG IV (19:59)
[2021-09-27] VITALS (13 sets, daily range): BP systolic 112–137; BP diastolic 60–78; PULSE 65–95; RESP 16–20; TEMP 36.6–36.8; O2SAT 90–95
[2021-09-27] MEDS: ipratropium-albuterol 3 mL Neb INHALATION ×6 (03:17→23:53)
[2021-09-27 06:14] LABS: Basophils % 0.1 %; Hematocrit 41.6 % (37.0-47.0); Hemoglobin 13.3 g/dL (11.5-15.3); Lymphocytes # 1.1 10^3/uL (0.8-4.8); Lymphocytes % 16.1 %; Mean Corpuscular Hemoglobin 29.5 pg (28.0-34.0); Mean Corpuscular Volume 92.2 fl (81-99); Mean Platelet Volume 10.3 fL (7.4-10.4); Monocytes # 0.4 10^3/uL (0.2-0.9); Neutrophils # 5.42 10^3/uL (1.8-7.7); Neutrophils % 78.2 %; Nucleated Red Blood Cells % 0 %; Platelet Count 252 10^3/cmm (130-400); Red Blood Count 4.51 10^6/uL (4.1-5.3); Red Cell Distribution Width 15.2 % (12.1-15.1); White Blood Count 6.9 10^3/uL (4.0-10.0)
[2021-09-27 06:53] LABS: Alanine Aminotransferase < 5 U/L (0-33); Aspartate Amino Transferase 5 U/L (0-32); Blood Urea Nitrogen 13 mg/dL (8-23); Calcium 8.7 mg/dL (8.5-10.5); Total Bilirubin 0.3 mg/dL (0.15-1.2)
[2021-09-27 06:56] LABS: Troponin T (5th) Once 11 ng/L (0-10)
[2021-09-27 07:30] LABS: Chloride 100 mmol/L (98-107); Potassium 4.8 mmol/L (3.5-5.1); Sodium 139 mmol/L (136-145)
[2021-09-27 08:03] LABS: Osmolality Calculated 287 mOsm/kg (285-295)
[2021-09-27 08:44] LABS: Alkaline Phosphatase 68 IU/L (35-105); Anion Gap 15.8 (5-19); Carbon Dioxide 28 mmol/L (22-29); Glucose 120 mg/dL (65-115)
[2021-09-27] MEDS: FUROsemide 20 mg Tablet PO (09:20)
[2021-09-27] MEDS: guaiFENesin 600 mg Tablet PO ×2 (09:20→17:25)
--- NOTE | 2021-09-27 15:42 | PC.SOCIAL ---
Pt will not DC today per Dr. Pete.
[2021-09-27] MEDS: azithromycin 500 MG in sodium chloride 0.9% 250 ML 250 MG IV (17:24)
[2021-09-27] MEDS: enoxaparin 40 mg/0.4 mL Syringe SUBCUT (17:25)
--- NOTE | 2021-09-27 19:18 | USCV_ITS ---
Halley Llanos Age: 75 Gender: F : 1945 Exam Date: 09/27/2021 13:58 Ordering Phys: Gabriel Pete MD Technologist: BIRDIE [place] [facility] [place] CHEST TIGHTNESS BP: 136 / 72 HR: 79 Rhythm: Sinus Technical Quality: Adequate MEASUREMENTS (Male / Female) Normal Values 2D ECHO LV Diastolic Diameter PLAX 4.3 cm 4.2 - 5.9 / 3.9 - 5.3 cm LV Systolic Diameter PLAX 2.7 cm IVS Diastolic Thickness 0.9 cm 0.6 - 1.0 / 0.6 - 0.9 cm IVS Systolic Thickness 1.5 cm LVPW Diastolic Thickness 1.0 cm 0.6 - 1.0 / 0.6 - 0.9 cm LVPW Systolic Thickness 1.3 cm RV Chamber Size 2.7 cm LVOT Diameter 2.0 cm LV Ejection Fraction 2D Teich 56.7 % LV Ejection Fraction MOD 2C 62.2 % LV Ejection Fraction 2C AL 63.1 % LA Diameter 2.4 cm Aorta at Sinotubular Diameter 2.0 cm M-MODE Aortic Annulus Diameter 2.9 cm LA Ao Ratio MM 0.9 DOPPLER AV Peak Velocity 176.0 cm/s LVOT Peak Velocity 131.0 cm/s AV Area Cont Eq vti 3.1 cm squared AV Area Cont Eq pk 2.4 cm squared MV Area PHT 3.4 cm squared Mitral E to A Ratio 0.7 MV E' Velocity 52.8 cm/s Mitral E to MV E' Ratio 9.2 Mitral E to LV E' Lateral Ratio 8.5 Mitral E to LV E' Septal Ratio 10.1 TR Peak Velocity 292.9 cm/s TR Peak Gradient 34.3 mmHg TR Mean Velocity 183.1 cm/s TR Mean Gradient 16.8 mmHg TR Velocity Time Integral 74.0 cm PV Peak Velocity 103.0 cm/s RV Acceleration Time 0.2 s RV Ejection Time 0.3 s RV AcT/ET 0.5 FINDINGS Left Ventricle Normal left ventricular size. LV systolic function is normal with EF of 55-60%. No regional wall motion abnormalities. Grade 1 diastolic dysfunction Right Ventricle The right ventricle is normal in size and function. Right Atrium The right atrium is normal in size. Left Atrium The left atrium is normal in size. Mitral Valve Moderate mitral annular calcification. Limited visualization. Trace mitral regurgitation. Aortic Valve Not well visualized. No significant stenosis. There is trace aortic regurgitation. Tricuspid Valve Structurally normal tricuspid valve without significant stenosis. Trace tricuspid regurgitation. Insufficient TR jet to calculate RVSP Pulmonic Valve Not well visualized Pericardium Normal pericardium without effusion. Aorta Normal ascending aorta dimension. CONCLUSIONS This is a limited quality echocardiogram because of poor ultrasonic windows. LV systolic function is normal with EF of 55 to 60%. Grade 1 diastolic dysfunction. Moderate mitral annular calcification is seen. Trace mitral regurgitation. Trace aortic regurgitation. Trace tricuspid regurgitation. No comparison studies are available Pedro Walker MD (Electronically Signed) Final Date: 28 September 2021 09:10 S
--- NOTE | 2021-09-27 20:16 | PM.PN ---
Subjective Subjective: Interval history: Patient was seen and examined this morning, continues to have significant shortness of breath with minimal exertion, wheezing is improved, good urine output with Lasix. Medications: Reviewed: Yes Vitals/I&O/Wt Last Vital Signs Temp 97.9 F 09/27/21 15:27 Pulse 74 09/27/21 15:28 Resp 18 09/27/21 15:28 BP 116/60 09/27/21 15:27 Pulse Ox 94 09/27/21 15:28 Weight last 48 hrs Weight 67.585 kg Physical Exam Const: COMMON NORMALS: patient oriented x3 HENMT: COMMON NORMALS: normocephalic and atraumatic HEAD & SCALP: normocephalic and atraumatic Resp: COMMON NORMALS: clear to auscultation bilaterally EFFORT & INSPECTION: Yes abnormal respiratory pattern, Yes labored, Yes Actively coughing, Yes uses accessory muscles, Yes audible wheezes and Yes prolonged expiratory phase AUSCULTATION: clear to auscultation bilaterally and wheezes Cardio: COMMON NORMALS: regular rate, regular rhythm, S1 normal heart sound present, S2 normal heart sound present, No gallops present (Cardio), No murmurs present (Cardio), No rub (Cardio) and Peripheral pulses 2+ throughout RATE: regular rate RHYTHM: regular rhythm HEART SOUNDS: S1 normal heart sound present and S2 normal heart sound present PERIPHERAL PULSES: Peripheral pulses 2+ throughout GI: COMMON NORMALS: Normal to inspection, nondistended, normoactive bowel sounds present, Soft to palpation, non-tender, No hepatosplenomegaly present and no masses AUSCULTATION: Yes normoactive bowel sounds PALPATION: Yes Soft to palpation and Yes No hepatosplenomegaly present RECTAL EXAM: deferred Extremity: COMMON NORMALS: no clubbing, cyanosis or edema and no pedal edema Neuro: COMMON NORMALS: patient oriented x3 Data : 09/27/21 05:45 09/27/21 05:45 A&P Assessment and plan (1) Respiratory failure with hypoxia and hypercapnia: Respiratory failure with hypoxia and hypercapnia secondary to COPD exacerbation 2D echo: Monitor x-ray chest Monitor ABG Duo nebs, steroids, IV azithromycin, supplemental oxygen as needed. Lasix 20 mg p.o. daily Monitor intake output Status: Acute (2) Acute exacerbation of chronic obstructive airways disease: Status: Acute Attestations Medical Necessity Statement*: Patient needs to be in hospital for management of COPD exacerbation. 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
[2021-09-28] VITALS (10 sets, daily range): BP systolic 121–148; BP diastolic 65–75; PULSE 67–94; RESP 16–18; TEMP 36.6–37.1; O2SAT 85–96
[2021-09-28] MEDS: ipratropium-albuterol 3 mL Neb INHALATION ×2 (04:34→08:10)
[2021-09-28] MEDS: guaiFENesin 600 mg Tablet PO (08:42)
[2021-09-28] MEDS: FUROsemide 20 mg Tablet PO (08:42)
--- NOTE | 2021-09-28 11:42 | PM.DCS ---
Discharge Providers Date of Admission: 09/27/21 20:59 Date of Discharge: September 28, 2021 Attending Provider at Admission: Gabriel Pete MD Attending Provider at Discharge: Gabriel Pete MD Primary Care Provider: Leora Ordoñez MD Diagnoses at Discharge Discharge Diagnosis (1) Respiratory failure with hypoxia and hypercapnia: Status: Acute (2) Acute exacerbation of chronic obstructive airways disease: Status: Acute Reason for Visit Reason for Visit: Cough, SOB, low O2, pain Hospital Course Hospital Course 75 year old female with past medical history of COPD on 2ls home oxygen,came in with chief complaint of worsening shortness of breath as well as cough started around Sunday,She initially came to the ER on 09/24 , and was discharged on prednisone as well as doxycycline, for COPD exacerbation, she failed to respond to outpatient treatment, came into the hospital because of worsening symptoms.Currently she is also complaining of inability to lie flat, as well as substernal chest tightness. Denies any fever, nausea vomiting, palpitations. Recently she has also started experiencing bilateral lower extremity swelling, for which she was started on as needed Lasix as an outpatient, by her primary care physician. Upon arrival in the ER she was worked up for above-mentioned complaint: Pertinent imaging studies: Mild bilateral pulmonary congestion. EKG: Sinus rhythm, no acute ST-T wave change Pertinent labs: WBC 9.8, H&H:14.9/46,plt:264, serum sodium 137 serum potassium 4.3 BUN/ serum creatinine:15/0.5, proBNP: 508 .ABG: pH: 7.36 PCO2 52, PO2:78, FiO2:32%. She was admitted for management of acute on chronic hypoxic hypercapnic respiratory failure secondary to COPD exacerbation. Patient was kept on IV steroids, empiric antibiotics, duo nebs, supplemental oxygen as needed, and other conservative respiratory support measures, 2D echo was done during the hospital stay as she was complaining of recent onset bilateral lower extremity edema, as well as progressively worsening shortness of breath, given her extensive smoking history, possibility of underlying coronary artery disease was there, 2D echo showed:LV systolic function is normal with EF of 55 to 60%.Grade 1 diastolic dysfunction. Moderate mitral annular calcification is seen.Trace mitral regurgitation. Trace aortic regurgitation. Trace tricuspid regurgitation. Patient responded well to above medical management at the time of discharge her shortness of breath has significantly improved, she qualified for 3 Ls home oxygen. She was discharged on albuterol sulfate inhaler as well as Advair Diskus inhaler was added, continued on prednisone as well as doxycycline. Lasix as needed was continued for bilateral lower extremity edema. Patient currently want to continue to follow with her primary care physician as an outpatient. Physical Exam Const: COMMON NORMALS: patient oriented x3 HENMT: COMMON NORMALS: normocephalic and atraumatic HEAD & SCALP: normocephalic and atraumatic Resp: EFFORT & INSPECTION: Yes labored OTHER: minimal b/l wheezing, with prolonged expiratory phase. Cardio: COMMON NORMALS: regular rate, regular rhythm, S1 normal heart sound present, S2 normal heart sound present, No gallops present (Cardio), No murmurs present (Cardio), No rub (Cardio) and Peripheral pulses 2+ throughout RATE: regular rate RHYTHM: regular rhythm HEART SOUNDS: S1 normal heart sound present and S2 normal heart sound present PERIPHERAL PULSES: Peripheral pulses 2+ throughout GI: COMMON NORMALS: Normal to inspection, nondistended, normoactive bowel sounds present, Soft to palpation, non-tender, No hepatosplenomegaly present and no masses AUSCULTATION: Yes normoactive bowel sounds PALPATION: Yes Soft to palpation and Yes No hepatosplenomegaly present RECTAL EXAM: deferred Extremity: COMMON NORMALS: no clubbing, cyanosis or edema and no pedal edema Neuro: COMMON NORMALS: patient oriented x3 Discharge Data Data Completed and Pending: Completed Studies During Hospitalization Category Date Time Status XR chest 2V* [id number] Stat Exams 09/26/21 10:10 Completed CV. echo complete * [id number] Routine Ultrasound 09/27/21 19:18 Completed Vitals: Last Vital Signs Temp 98.4 F 09/28/21 11:24 Pulse 94 09/28/21 11:24 Resp 18 09/28/21 11:24 BP 134/71 09/28/21 11:24 Pulse Ox 93 09/28/21 11:24 Discharge Plan Discharge Patient Disposition: Home Condition: Stable Prescriptions: New Advair Diskus 100-50 mcg/dose blister with device 1 inh inhalation BID Qty: 60 RF: 3 Continued doxycycline hyclate 100 mg tablet 100 mg PO BID 10 Days Qty: 20 RF: 0 potassium chloride 10 mEq tablet extended release 10 meq PO DAILY PRN (Reason: take with lasix) RF: 0 Tylenol 8 Hour 650 mg Tablet Extended Release 650 mg PO Q12H PRN (Reason: Pain) RF: 0 furosemide 20 mg tablet 20 mg PO DAILY PRN (Reason: Edema) RF: 0 albuterol sulfate 90 mcg/actuation HFA aerosol inhaler 2 inh inhalation Q4H PRN (Reason: Shortness Of Breath) RF: 0 Changed prednisone 50 mg tablet 50 mg PO QAM 7 Days Qty: 7 RF: 0 Discharge Orders: Discharge Order (Routine); Ordered 09/28/21 Ordered By: Gabriel Pete Other Ambulatory Orders: DME: Nebulizer with Neb Kit (Order) Location: None Selected Ordered By: Gabriel Pete Referrals: Leora Ordoñez MD [Primary Care Provider] - 10/10/21 2:30 pm Discharge Diet: Regular Discharge Activity: Increase activity as tolerated Patient Instructions: Fluticasone/Salmeterol (By breathing), Using Oxygen at Home (GEN), COPD (Chronic Obstructive Pulmonary Disease) (GEN), How to Use a Nebulizer (GEN), Opioid Safety Discharge Attestations Time Spent in Discharge Care*: less than 30 min Specific Discharge Activities: educating patient, educating and/or supporting family/caregiver, discussing with pcp/other providers, discussing with case loader operator/social workers/dc planners, documenting/other paperwork and evaluating patient/reviewing data Status at Discharge: Cognitive status at discharge: cognitively intact, Behavioral status at discharge: cooperative, Functional status at discharge: independent ambulation Overall status at discharge: patient is progressing back to baseline Quality Metrics Clinical Quality Measures During this hospital stay, did patient experience: None Coding Level of Care Code Acute Chg FW DC note Exam Detailed Diagnoses Respiratory failure with hypoxia and hypercapnia J96.91; J96.92 Acute exacerbation of chronic obstructive airways disease J44.1
--- NOTE | 2021-09-30 10:00 | PC.SOCIAL ---
discharge follow up call made. pt wasn't feels she is having an allergic reaction to her advair diskus. she reports breaking out in hives. instructed pt to discontinue use. pt has her albuterol inhaler and o2 that she is continuing to use. pt has follow up appointment with dr. duran on 10-10. rfp writer called office to see if pt could get in sooner, office is closed due to the holiday. pt doesn't feel she needs to go to the ED. her spo2 is 92% on 3L. instructed pt if she became increasingly short of breath to call 911. she verbalizes understanding.
== END 2021-09-28 12:40 | disposition home or self-care (01) ==
LOC: ER 12:23 → MEDSURG 15:58
PROVIDERS: Emergency Medicine; Physician Assistant; Admitting Provider Internal Medicine; Emergency Provider Family Medicine; PCP Family Medicine; Visit Provider Internal Medicine
DX: J96.91 Respiratory failure, unspecified with hypoxia (principal); J96.92 Respiratory failure, unspecified with hypercapnia; J96.22 Acute and chronic respiratory failure with hypercapnia; J44.1 Chronic obstructive pulmonary disease with (acute) exacerbation; Z99.81 Dependence on supplemental oxygen
CPT/HCPCS: 36415; 36600; 71045; 71046; 71275; 80051; 80053; 82330; 82805; 83605; 83880; 84145; 84484; 85025; 86140; 87040; 87426; 87804; 93005; 93306; 94640; 96372; 96374; 96375; 99284; 99285; G0378; J0456; J1650; J1885; J2930; J3105; J7030; J7040; J7050; Q9967

== ENCOUNTER 2022-10-19 14:40 | Emergency (ER) | payer MEDICARE, SELFPAY ==
[2022-10-19 14:51] VITALS: BP 124/71; PULSE 83; RESP 20; TEMP 37.2; O2SAT 92
--- NOTE | 2022-10-19 15:14 | XRR_ITS ---
PROCEDURE INFORMATION: Exam: XR Chest Exam date and time: 10/19/2022 3:20 PM Age: 76 years old Clinical indication: Cough and dyspnea; Additional info: Cough; Dyspnea TECHNIQUE: Imaging protocol: Radiologic exam of the chest. Views: 1 view. COMPARISON: CR XR chest 2V* [id number] 09/26/2021 10:36 AM FINDINGS: Lungs: There ill-defined ground-glass opacities projecting over the peripheral aspect of the left mid to lower lung zone that has developed. Findings are nonspecific and may represent viral pneumonitis or atypical presentation of idiopathic interstitial lung disease. Right lung field remains aerated and clear. Pleural spaces: Unremarkable. No pleural effusion. No pneumothorax. Heart/Mediastinum: Unremarkable. No cardiomegaly. Bones/joints: Unremarkable for age. XR/XR chest 1V portable [id number] IMPRESSION: Interval development of scattered they ground-glass opacities left lung, nonspecific as discussed above. CT exam of the chest may be helpful for further characterization.
--- NOTE | 2022-10-19 15:16 | W.ED.SOB ---
HPI - SOB/Dyspnea General: Chief Complaint: Shortness of Breath/Dyspnea Stated Complaint: sob Time Seen by Provider: 10/19/22 15:02 Source: patient and family Mode of arrival: ambulatory Limitations: no limitations History of Present Illness: HPI Narrative: See nursing assessment. Patient with complaints of increased shortness of breath over the past 3 days. Patient had a fever up to 101 degrees yesterday. She has had a cough productive of yellow sputum. She has had to use her home nebulizer more often than usual. She states she normally has oxygen saturation of 88% in the morning but improves throughout the day with activity. However, she states she is dropped down in the 70s at night for the past couple nights. She is also had increased dyspnea on exertion. She has a possible history of COPD. She denies supplemental oxygen use at home. She does take Spiriva and albuterol nebulizer at home. She is allergic to penicillin. She does still smoke cigarettes. She denies any chest pain. Associated symptoms: Reports fever(s); Deny abdominal pain, chest pain, nausea, palpitations or vomiting Review of Systems Const: Reports: fever(s) and fatigue; Denies: chills Eyes: Denies: change in vision ENMT: Denies: throat pain Card: Denies: chest pain or palpitations Resp: Reports: dyspnea, productive cough (Yellow sputum), wheezing and other (Dyspnea on exertion) GI: Denies: abdominal pain, nausea or vomiting : Denies: flank pain Musc: Denies: neck pain or back pain Skin/Breast: Denies: rash or pruritus Neuro: Denies: headache(s) or numbness in extremities Psych: Denies: anxiety Eleuterio/Lymph: Denies: enlarged lymph nodes [facility] ED PFSH: Medical History Acute and chronic respiratory failure with hypercapnia Acute exacerbation of chronic obstructive airways disease Respiratory failure with hypoxia and hypercapnia Supplemental [facility] Information: Patient smokes cigarettes. Physical Exam Const: COMMON NORMALS: no acute distress, patient oriented x3, no limitations and well nourished GENERAL APPEARANCE: cooperative HENMT: COMMON NORMALS: normocephalic and atraumatic HEAD & SCALP: normocephalic and atraumatic FACE & SINUS: normal facial exam Eye: COMMON NORMALS: EOMs intact bilaterally Neck/C-Spine: COMMON NORMALS: full ROM, no lymphadenopathy, supple and no meningeal signs GENERAL: Yes normal visual inspection Lymph: LYMPHATIC: no lymphadenopathy noted Chest: COMMONS NORMALS: normal inspection of the chest and normal palpation of entire chest wall CHEST: No Ecchymosis present and No rash Resp: COMMON NORMALS: normal respiratory effort and No retractions EFFORT & INSPECTION: No respiratory distress OTHER: And story and x-ray wheezes bilaterally. Patient sounds slightly tight. Mild rhonchi bilaterally. No retractions. Cardio: COMMON NORMALS: regular rate, regular rhythm and Peripheral pulses 2+ throughout JUGULAR VENOUS DISTENTION: no JVD RATE: regular rate RHYTHM: regular rhythm PERIPHERAL PULSES: Peripheral pulses 2+ throughout GI: COMMON NORMALS: Normal to inspection, nondistended, normoactive bowel sounds present and non-tender : COMMON NORMALS: Yes no CVA tenderness BLADDER/KIDNEY EXAM: Yes no CVA tenderness Back/Pelvis: COMMON NORMALS: no CVA tenderness Extremity: COMMON NORMALS: normal to inspection, full ROM and capillary refill normal Neuro: COMMON NORMALS: patient oriented x3, CN's II-XII intact bilaterally, no focal motor deficits and no sensory deficits noted MENINGEAL SIGNS: Yes no meningeal signs Psych: COMMON NORMALS: mental status grossly normal and Normal thought process present THOUGHT PROCESS: Normal thought process present Skin: COMMON NORMALS: no rashes or lesions noted and no wounds GENERAL SKIN EXAM: no rashes or lesions noted Course Vital Signs: Vital signs: Vital Signs Temperature 99.0 F 10/19/22 14:51 Pulse Rate 81 10/19/22 15:51 Respiratory Rate 16 10/19/22 15:51 Blood Pressure 124/71 10/19/22 14:51 Pulse Oximetry 86 L 10/19/22 17:36 Oxygen Delivery Me thod 10/19/22 15:51 Oxygen Flow Rate 3 10/19/22 17:36 MDM - SOB/Dyspnea Medical Decision Making COPD exacerbation versus pneumonia versus acute bronchitis Positive for influenza. I have consulted respiratory therapy to set up home oxygen for patient to use at night. Respiratory therapy found patient needed home oxygen at 3 L/min. Lab Data 10/19/22 15:33 10/19/22 15:33 Labs/Radiology: Radiology Impressions Chest X-Ray 10/19/22 15:14 IMPRESSION: Interval development of scattered they ground-glass opacities left lung, nonspecific as discussed above. CT exam of the chest may be helpful for further characterization. Laboratory Results WBC 4.2 10^3/uL (4.0-10.0) 10/19/22 15: RBC 5.02 10^6/uL (4.1-5.3) 10/19/22 15: Hgb 13.8 g/dL (11.5-15.3) 10/19/22 15: Hct 44.4 % (37.0-47.0) 10/19/22 15: MCV 88.4 fl (81-99) 10/19/22 15: MCH 27.5 pg (28.0-34.0) L 10/19/22 15: MCHC 31.1 g/dL (30.0-36.0) 10/19/22 15: RDW 16.2 % (12.1-15.1) H 10/19/22 15: Plt Count 218 10^3/cmm (130-400) 10/19/22 15: MPV 10.6 fL (7.4-10.4) H 10/19/22 15: Neut % (Auto) 70.6 % 10/19/22: Lymph % (Auto) 10.9 % 10/19/22 15: Whiteside % (Auto) 17.5 % 10/19/22 15: Eos % (Auto) 0.0 % 10/19/22 15: Baso % (Auto) 0.5 % 10/19/22: Neut # (Auto) 2.98 10^3/uL (1.8-7.7) 10/19/22 15: Lymph # (Auto) 0.5 10^3/uL (0.8-4.8) L 10/19/22: Whiteside # (Auto) 0.7 10^3/uL (0.2-0.9) 10/19/22 15:33 Eos # (Auto) 0.0 10^3/uL (0.0-0.8) 10/19/22 15: Baso # (Auto) 0.0 10^3/uL (0.0-0.1) 10/19/22 15:33 Nucleated RBC % (auto) 0 % 10/19/22 15:33 Nucleated RBCs # 0.0 /100WBC 10/19/22 15:33 Specimen Type Arterial 10/19/22 15:49 Sample Site Radial, right 10/19/22 15:49 ABG pH 7.41 (7.35-7.45) 10/19/22 15:49 ABG pCO2 38.3 mmHg (35-45) 10/19/22 15:49 ABG pO2 68.9 mmHg (80.0-100.0) L 10/19/22 15:49 ABG HCO3 24.3 mmol/L (22-26) 10/19/22 15:49 ABG Base Excess -0.2 mmol/L (-2.0-2.0) 10/19/22 15:49 Dhruv Test Pos 10/19/22 15:49 Hematocrit 41.7 % (37-47) 10/19/22 15:49 Hgb O2 Saturation 93.0 % (95-100) L 10/19/22 15:49 Carboxyhemoglobin 1.5 %THgb (0.4-20.1) 10/19/22 15:49 Methemoglobin 0.8 % (0.4-1.5) 10/19/22 15:49 Total Hemoglobin 13.6 g/dL (-16) 10/19/22 15:49 O2 Delivery Device Nc 10/19/22 15:49 O2 Liters/Min 2.0 % 10/19/22 15:49 FiO2 28.0 % 10/19/22 15:49 Gun Perforator Loader ID glc 10/19/22 15:49 Sodium 128 mmol/L (136-145) L 10/19/22 15:33 Potassium 3.5 mmol/L (3.5-5.1) 10/19/22 15:33 Chloride 91 mmol/L (98-107) L 10/19/22 15:33 Carbon Dioxide 25 mmol/L (22-29) 10/19/22 15:33 Anion Gap 15.5 (5-19) 10/19/22 15:33 BUN 12 mg/dL (8-23) 10/19/22 15:33 Creatinine 0.7 mg/dL (0.5-0.9) 10/19/22 15:33 GFR Calculation Not Reportable 10/19/22 15:33 Glucose 74 mg/dL (65-115) 10/19/22 15:33 Calculated Osmolality 264 mOsm/kg (285-295) L 10/19/22 15:33 Lactic Acid 1.3 mmol/L (0.5-2.2) 10/19/22 15:33 Calcium 8.2 mg/dL (8.5-10.5) L 10/19/22 15:33 Troponin T Baseline 12 ng/L (0-10) H 10/19/22 15:33 NT-Pro-B Natriuret Pep 1060 pg/mL (0-125) H 10/19/22 15:33 Influenza Type A Ag positive (Negative) H 10/19/22 15:55 Influenza Type B Ag negative (Negative) 10/19/22 15:55 SARS-CoV-2 Ag (Rapid) negative (Negative) 10/19/22 15:55 Imaging Data CXR: My impression: COPD pattern. Questionable early faint infiltrate to the left lower lobe of the lung. Await radiologist interpretation. Radiologist's impression: PROCEDURE INFORMATION: Exam: XR Chest Exam date and time: 10/19/2022 3:20 PM Age: 76 years old Clinical indication: Cough and dyspnea; Additional info: Cough; Dyspnea TECHNIQUE: Imaging protocol: Radiologic exam of the chest. Views: 1 view. COMPARISON: CR XR chest 2V* [id number] 09/26/2021 10:36 AM FINDINGS: Lungs: There ill-defined ground-glass opacities projecting over the peripheral aspect of the left mid to lower lung zone that has developed. Findings are nonspecific and may represent viral pneumonitis or atypical presentation of idiopathic interstitial lung disease. Right lung field remains aerated and clear. Pleural spaces: Unremarkable. No pleural effusion. No pneumothorax. Heart/Mediastinum: Unremarkable. No cardiomegaly. Bones/joints: Unremarkable for age. XR/XR chest 1V portable [id number] IMPRESSION: Interval development of scattered they ground-glass opacities left lung, nonspecific as discussed above. CT exam of the chest may be helpful for further characterization. ? Dictated By: Xu Farah MD Signed By: Xu Farah MD Signed Date/Time: 10/19/22 1556 EKG Data EKG 1: I personally reviewed and interpreted this EKG as follows: EKG Interpretation Date: 10/19/22 EKG interpretation time: 15:35 Interpretation: Normal sinus rhythm with heart rate of 75. Normal ST segment. Normal QRS. Normal T waves, mild left atrial enlargement. Normal QT interval, normal [place] interval. Discharge Plan Discharge Patient Disposition: Home Clinical Impression: Acute exacerbation of chronic obstructive airways disease, Influenza A virus present Condition: Stable Prescriptions: New prednisone 20 mg tablet See Rx Instructions .ROUTE .COMPLEX 7 Days Qty: 10 0RF Rx Instructions: 40 mg p.o. daily x3 days then 20 mg p.o. daily until finished. Tamiflu 75 mg capsule 75 mg PO BID 5 Days Qty: 10 0RF No Action acetaminophen [Tylenol 8 Hour] 650 mg Tablet Extended Release 650 mg PO Q12H PRN (Reason: Pain) albuterol sulfate 90 mcg/actuation HFA aerosol inhaler 2 inh inhalation Q4H PRN (Reason: Shortness Of Breath) albuterol sulfate 2.5 mg /3 mL (0.083 %) solution for nebulization 2.5 mg inhalation QPM PRN (Reason: Shortness Of Breath Or Wheezing) Anoro Ellipta 62.5-25 mcg/actuation blister with device 1 inh INHALATION DAILY PRN (Reason: Shortness Of Breath Or Wheezing) aspirin 325 mg Capsule 650 mg PO BID PRN (Reason: Pain) Discharge Orders: Discharge ED (Routine); Ordered 10/19/22 Ordered By: Joel Olivas Referrals: Leora Ordoñez MD [Primary Care Provider] - Discharge Activity: Increase activity as tolerated Patient Instructions: Influenza (ED), COPD (Chronic Obstructive Pulmonary Disease) (ED), Opioid Safety, Pain Management Activity Restrictions/Additional Instructions: Take Tamiflu every 12 hours until finished. Continue home albuterol nebulizer every 4-6 hours as needed for wheezing or shortness of breath. Prescriptions for prednisone and Tamiflu need to be filled today. Wear oxygen by nasal cannula at 3 L/min. Coding Level of Care Code ED Production Quality Manager for Chg Fwd History Comprehensive Exam Comprehensive Medical Decision Making Moderate Complexity
[2022-10-19] MEDS: ipratropium-albuterol 3 mL Neb INHALATION (15:29)
--- NOTE | 2022-10-19 15:32 | ECG_ITS ---
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 Measurements Intervals [place] Rate: 75 P: 82 FL: 154 QRS: 89 QRSD: 81 T: 70 QT: 370 QTc: 414 Interpretive Statements SINUS RHYTHM ANTEROSEPTAL MYOCARDIAL INFARCTION , OF INDETERMINATE AGE [40+ ms Q WAVE IN V1-V4] Compared to ECG 09/26/2021 14:05:02 No significant changes Electronically Signed On 10-20-2022 13:48:22 GRANULATOR TENDER by Pedro Walker M.D. [id number]
[2022-10-19 15:34] VITALS: PULSE 69; RESP 20; O2SAT 84
[2022-10-19 15:51] VITALS: PULSE 81; RESP 16; O2SAT 92
[2022-10-19 15:59] LABS: ABG PCO2 38.3 mmHg (35-45); ABG PH Result 7.41 (7.35-7.45); Arterial Blood Gas Hematocrit 41.7 % (37-47); Base Excess ABG -0.2 mmol/L (-2.0-2.0); Blood Gas Allen Test Pos; Blood Gas Operator Identificat glc; Blood Gas Sample Site Radial, right; Blood Gas Sample Type Arterial; Carboxyhemoglobin 1.5 %THgb (0.4-20.1); HCO3 ABG 24.3 mmol/L (22-26); Methemoglobin 0.8 % (0.4-1.5); Oxygen Device NC; PO2 ABG 68.9 mmHg (80.0-100.0); Total Hemoglobin 13.6 g/dL (12-16)
[2022-10-19 16:05] LABS: Influenza A by IFA positive (Negative); Influenza B by IFA negative (Negative)
[2022-10-19 16:10] LABS: Basophils % 0.5 %; Hematocrit 44.4 % (37.0-47.0); Hemoglobin 13.8 g/dL (11.5-15.3); Lymphocytes # 0.5 10^3/uL (0.8-4.8); Lymphocytes % 10.9 %; Mean Corpuscular HGB Conc 31.1 g/dL (30.0-36.0); Mean Corpuscular Hemoglobin 27.5 pg (28.0-34.0); Mean Corpuscular Volume 88.4 fl (81-99); Mean Platelet Volume 10.6 fL (7.4-10.4); Monocytes # 0.7 10^3/uL (0.2-0.9); Monocytes % 17.5 %; Neutrophils # 2.98 10^3/uL (1.8-7.7); Neutrophils % 70.6 %; Nucleated Red Blood Cells % 0 %; Platelet Count 218 10^3/cmm (130-400); Red Blood Count 5.02 10^6/uL (4.1-5.3); Red Cell Distribution Width 16.2 % (12.1-15.1); White Blood Count 4.2 10^3/uL (4.0-10.0)
[2022-10-19 16:17] LABS: SARS Covid-2 Antigen negative (Negative)
[2022-10-19 16:28] LABS: Lactic Sepsis W/Reflex 1.3 mmol/L (0.5-2.2)
[2022-10-19 16:31] LABS: Troponin(5th) Baseline 12 ng/L (0-10)
[2022-10-19 16:40] LABS: Anion Gap 15.5 (5-19); Blood Urea Nitrogen 12 mg/dL (8-23); Calcium 8.2 mg/dL (8.5-10.5); Carbon Dioxide 25 mmol/L (22-29); Chloride 91 mmol/L (98-107); Glucose 74 mg/dL (65-115); NT Pro B Type Natriuretic Pept 1060 pg/mL (0-125); Osmolality Calculated 264 mOsm/kg (285-295); Potassium 3.5 mmol/L (3.5-5.1); Sodium 128 mmol/L (136-145)
[2022-10-19 17:36] VITALS: O2SAT 86; O2SAT 91
[2022-10-19] MEDS: oseltamivir phosphate 75 mg Capsule PO (17:41)
[2022-10-19 18:01] LABS: Troponin 5 2HR 12.35 ng/L (0-10)
[2022-10-19 18:04] LABS: Troponin 5 2HR Delta 0.35 ABS# (0-10)
[2022-10-19 18:52] VITALS: PULSE 81; RESP 16; O2SAT 92
== END 2022-10-19 18:41 | disposition home or self-care (01) ==
PROVIDERS: Emergency Provider Family Medicine; PCP Family Medicine
DX: J44.1 Chronic obstructive pulmonary disease with (acute) exacerbation (principal); J10.1 Influenza due to other identified influenza virus with other respiratory manifestations; Z20.822 Contact with and (suspected) exposure to COVID-19
CPT/HCPCS: 36415; 36600; 71045; 80048; 82805; 83605; 83880; 84484; 85025; 87040; 87426; 87804; 93005; 94640; 96374; 99285; 99291; J2930

== ENCOUNTER 2025-02-23 14:32 | Outpatient (CLI) | payer MEDICARE, SELFPAY ==
--- NOTE | 2025-02-23 14:37 | CT_ITS ---
WS: [id number] CT HEAD TECHNIQUE: Noncontrast CT of the head obtained from the skullbase to the vertex. CLINICAL INFORMATION: LEFT HAND WEAKNESS DLP: 992.[address] scans at [facility] use at least one of these dose optimization techniques: automated exposure control; mA and/or kV adjustment per patient size (includes targeted exams where dose is matched to clinical indication); or iterative reconstruction. FINDINGS: Comparison 2012 No evidence of intracranial hemorrhage or mass effect. Ventricular system and basal cisterns are patent. Moderate small vessel changes with moderate parenchymal volume loss. No extra-axial fluid collections. No evidence of mass or mass effect. Vascular calcification. Paranasal sinuses and mastoid air cells are well aerated. .Normal visualized soft tissues. CT/CT head wo con* [id number] IMPRESSION: 1. No evidence of intracranial hemorrhage or mass effect. 2. Moderate small vessel changes with moderate parenchymal volume loss progres sed since 2012. 3. Vascular calcification. 4. No acute intracranial findings.
== END 2025-02-23 14:33 | disposition home or self-care (01) ==
LOC: RAD 14:33
PROVIDERS: PCP Family Medicine; Visit Provider Family Medicine
DX: R29.898 Other symptoms and signs involving the musculoskeletal system (principal); R93.0 Abnormal findings on diagnostic imaging of skull and head, not elsewhere classified; I67.2 Cerebral atherosclerosis
CPT/HCPCS: 70450

== ENCOUNTER 2025-02-24 09:51 | Outpatient (CLI) | payer MEDICARE, SELFPAY ==
[2025-02-24 10:12] VITALS: PULSE 67; RESP 18; O2SAT 95
[2025-02-24] MEDS: albuterol 2.5 mg/3 mL Neb INHALATION (10:12)
== END 2025-02-24 09:52 | disposition home or self-care (01) ==
LOC: RT 09:58
PROVIDERS: PCP Family Medicine; Visit Provider Family Medicine
DX: J43.9 Emphysema, unspecified (principal); J98.8 Other specified respiratory disorders
CPT/HCPCS: 94060; 94726; 94729; J7613

== ENCOUNTER 2025-03-20 06:58 | Outpatient (CLI) | payer MEDICARE, SELFPAY ==
--- NOTE | 2025-03-20 | ECG_ITS ---
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 The perfusion scan will be documented separately. DATA: Baseline heart rate was 63 beats per minute. Baseline blood pressure was 127/61 millimeters of mercury. Target heart rate was 143. Maximum heart rate achieved was 88. which was 61% of the predicted target heart rate. Maximum blood pressure was 150/81 millimeters of mercury. The reason for ending the test was completion of the protocol. The patient did not experience any symptoms. ELECTROCARDIOGRAM: BASELINE: Sinus rhythm. Right l axis. Otherwise, anterolateral poor R wave progression possible old myocardial infarction EXERCISE: After Lexiscan injection, no ST-T changes suggestive of ischemic noted. No arrhythmia noted. CONCLUSION: Please note due to baseline abnormality of the EKG specificity and sensitivity of the EKG portion of LexiScan MIBI stress test will be low 1. EKG not suggestive of ischemia 2. Lexiscan injection unremarkable. 3. Perfusion scan will be documented separately. Electronically Signed On 04-07-2025 22:52:04 CDT by JUNI CORTES [email or web address] [id number]
[2025-03-20 07:11] VITALS: BMI 29.2
--- NOTE | 2025-03-20 07:13 | NMCV_ITS ---
NM maged perf SPECT r/s* [id number] Halley Llanos Age: 79 Gender: F : 1945 Exam Date: 03/20/2025 08:08 Ordering Phys: Leora Ordoñez MD Technologist: EDMUNDO Napoles Exam Location: [facility] Indications: CP STRESS TEST Please [facility] IMAGE PROTOCOL Rest/Stress 1 Lexiscan Day Radiopharmaceutical Dose (mCi) Administration Site Administered by Rest: Tc-99m 10.7 IV EDMUNDO Napoles Sestamibi Stress:Tc-99m 32.6 IV EDMUNDO Miller Sestamibi Rest: 20-Mar-2025 60 Discovery 630 Stress: 20-Mar-2025 30 Discovery 630 0.4mg Lexiscan. Images obtained in supine and prone position. SPECT RESULTS Technical Quality: Good Raw Data Analysis: Normal Image Corrections: No attenuation or motion correction applied Summed Stress Score: 0 Summed Rest Score: 0 Summed Difference Score: 0 PERFUSION FINDINGS SPECT images demonstrate homogeneous tracer distribution throughout the myocardium. FUNCTIONAL RESULTS (calculated via Gated SPECT) Stress Image LV EF (%): 87 Stress EDV (mL):47 TID: 0.7 Stress ESV (mL):6 FUNCTIONAL FINDINGS: There is normal left ventricular systolic function. IMPRESSIONS Myocardial perfusion imaging is normal. Jay Jay Katz MD (Electronically Signed) Final Date: 22 Mar 2025 14:04 S
[2025-03-20] MEDS: regadenoson 0.4 Mg/5 ml Syringe IVP (08:34)
[2025-03-20 08:48] VITALS: BP 132/64; PULSE 78
--- NOTE | 2025-03-20 09:31 | USCV_ITS ---
Halley Llanos Age: 79 Gender: F : 1945 Exam Date: 03/20/2025 09:43 Ordering Phys: Leora Ordoñez MD Technologist: BJORN Exam Location: [facility] Indication: CP, Sob BP: 120 / 70 HR: 65 Rhythm: Sinus Technical Quality: Adequate MEASUREMENTS (Male / Female) Normal Values 2D ECHO LV Diastolic Diameter PLAX 4.6 cm 4.2 - 5.9 / 3.9 - 5.3 cm IVS Diastolic Thickness 0.7 cm 0.6 - 1.0 / 0.6 - 0.9 cm IVS Systolic Thickness 1.3 cm LVPW Diastolic Thickness 0.8 cm 0.6 - 1.0 / 0.6 - 0.9 cm LVPW Systolic Thickness 1.1 cm LVOT Diameter 1.9 cm LV Ejection Fraction 2D Teich 56.2 % LV Ejection Fraction MOD 4C 73.2 % LV Ejection Fraction MOD 2C 66.9 % LV Ejection Fraction 2C AL 66.4 % LA Diameter 3.5 cm RA Systolic Volume 4C AL 28.4 ml RA Systolic Volume 4C MOD 27.9 ml LA Sys Volume AL 31.2 cm cubed LA Sys Volume Index AL 18.1 cm cubed/m squared Aorta at Sinotubular Diameter 2.7 cm IVC Diameter 1.6 cm M-MODE LA Ao Ratio MM 1.5 AV Cusp Separation MM 1.2 cm DOPPLER AV Peak Velocity 153.0 cm/s LVOT Peak Velocity 96.0 cm/s AV Area Cont Eq vti 1.8 cm squared AV Area Cont Eq pk 1.9 cm squared MV Peak Velocity 144.0 cm/s MV Area PHT 3.7 cm squared Mitral E to A Ratio 0.5 TR Peak Velocity 95.0 cm/s TR Peak Gradient 3.6 mmHg TV Peak E Velocity 72.0 cm/s PV Peak Velocity 104.0 cm/s FINDINGS Left Ventricle Normal left ventricular size, systolic function and wall thickness, with no regional wall motion abnormalities. Left ventricular ejection fraction is estimated at 60 %. Right Ventricle Normal right ventricular size and systolic function. Right Atrium Normal right atrial size. Left Atrium Normal left atrial size. Mitral Valve Mildly thickened mitral valve. Mild mitral annular calcification. Trace mitral valve regurgitation. Aortic Valve Mildly thickened aortic valve. Tricuspid Valve Structurally normal tricuspid valve. Trace tricuspid valve regurgitation. Normal TR gradient Pulmonic Valve Pulmonic valve not well visualized. Trace pulmonary valve regurgitation. Pericardium No pericardial effusion. Aorta Normal size aortic root and proximal ascending aorta. IVC Normal inferior vena cava. CONCLUSIONS Normal left ventricular size and systolic function. Normal LVEF 60%. Normal chamber sizes. No significant valvular abnormality noted. Normal right heart and pulmonary pressures. Dariana Tan MD (Electronically Signed) Final Date: 20 Mar 2025 14:13 S
--- NOTE | 2025-03-20 09:42 | USCV_ITS ---
Halley Llanos Age: 79 Gender: F : 1945 Exam Date: 03/20/2025 10:03 Ordering Phys: Leora Ordoñez MD Technologist: BJORN [place] [facility] [place]: Dyspnea Risk Factors: Previous Vascular Surgery: Right Brachial BP: / Left Brachial BP: / Right Left Velocity (cm/s) Spectral Plaque Velocity (cm/s) Spectral Plaque Syst/Diast Broadening Syst/Diast Broadening 72.40/ 15.40 Prox CCA 60.50 / 11.70 69.80/ 15.40 Mid CCA 70.70 / 18.80 67.20/ 19.30 Distal CCA 66.00 / 15.50 46.20/ 10.90 Prox ICA 38.20 / 9.80 54.50/ 11.20 Mid ICA 56.20 / 15.90 60.40/ 17.80 Distal ICA 90.20 / 26.50 75.70 ECA 48.50 0.70 ICA/CCA 0.60 Antegrade Vertebral Antegrade 48.10/ 15.60 cm/s 55.80/ 16.70 cm/s Bi Subclavian Bi 115.2 133.4 0 0 FINDINGS Comparison: none available. No significant elevation of systolic or diastolic velocities. Waveforms are normal. Minimal carotid atherosclerosis. CONCLUSIONS Bilateral ICA stenosis less than 50%. Minimal carotid atherosclerosis. Dr. Ashley Ortiz DO (Electronically Signed) Final Date: 20 Mar 2025 13:17 S
== END 2025-03-20 06:59 | disposition home or self-care (01) ==
PROVIDERS: PCP Family Medicine; Visit Provider Family Medicine
DX: R07.9 Chest pain, unspecified (principal); G45.9 Transient cerebral ischemic attack, unspecified; R06.02 Shortness of breath; I34.81 Nonrheumatic mitral (valve) annulus calcification; I35.8 Other nonrheumatic aortic valve disorders
CPT/HCPCS: 78452; 93017; 93306; 93880; A9500; J2785